=== PATIENT | female | born 1990 | race African-American/Black ===

== ENCOUNTER → 2017-05-26 | Outpatient (CLI) | payer OTHER ==
--- NOTE | 2017-06-15 00:27 | ECWPNPC ---
PATIENT NAME: JULIANA SLADE : 1990 GENDER: FEMALE VISIT DATE: 05/26/2017 DISCHARGE DATE: 05/26/17 1146 VISIT LOCKED DATE TIME: PHYSICIAN: SELENE GALINDO RESOURCE: SELENE GALINDO REASON FOR APPOINTMENT 1. LOW BACK PAIN HISTORY OF PRESENT ILLNESS FALL RISK SCREENING: SCREENING :NO FALLS IN THE PAST YEAR 27 YEAR OLD FEMALE PATIENT WITH HISTORY OF CHRONIC LOW BACK PAIN. PATIENT DESCRIBES THE PAIN SHARP AND IT COMES AND GOES WITH A PAIN SCORE OF 4/10. PATIENT STATES THAT SHE FELL 3 YEARS AGO WHEN SHE FELL WHILE CLEANING A CEILING FAN. PATIENT IS CURRENTLY USING PERCOCET TO AID IN PAIN RELIEF. PATIENT REPORTS ICE, HEAT, AND PHYSICAL THERAPY DIDN'T HELP WITH PAIN RELIEF. PATIENT REPORTS HAVING LUMBAR EPIDURAL'S IN [facility] AND STATES THAT SHE HAS NO RELIEF FROM THE INJECTIONS. PATIENT DENIES UNEXPLAINABLE WEIGHT LOSS, FEVER, CHILLS, NEW CHANGES ON HER URINARY OR BOWEL CONTROL. PAIN SCREENING: PATIENT HAS A COMPLAINT OF ACUTE OR CHRONIC PAIN :YES CURRENT MEDICATIONS TAKING LEVORA 0.15/30 (28) 0.15-30 MG-MCG TABLET ORALLY TAKING VALIUM 5 MG TABLET 1 TABLET NEEDED ORALLY TWICE A DAY TAKING PERCOCET 10-325 MG TABLET 1 TABLET NEEDED ORALLY EVERY 6 HRS TAKING ONE DAILY FOR WOMEN - TABLET 1 TAB ORALLY DAILY MEDICATION LIST REVIEWED AND RECONCILED WITH THE PATIENT PAST MEDICAL HISTORY LOW BACK PAIN ENDOMETRIOSIS PANCREATITIS ALLERGIES CHOCOLATE: ITCHING: ALLERGY SURGICAL HISTORY DENIES PAST SURGICAL HISTORY FAMILY HISTORY FATHER: 57 YRS, DIAGNOSED WITH CANCER MOTHER: 53 YRS, DIAGNOSED WITH DIABETES, CANCER DAD--LUNG CAMOM--PANCREATIC CA. SOCIAL HISTORY GENERAL: TOBACCO USE ARE YOU A:CURRENT SMOKER HOW MANY CIGARETTES A DAY DO YOU SMOKE?5 OR LESS HOW SOON AFTER YOU WAKE UP DO YOU SMOKE YOUR FIRST CIGARETTE?31-60 MIN HOW OFTEN DO YOU SMOKE CIGARETTES?EVERY DAY PATIENT COUNSELED ON THE DANGERS OF TOBACCO USE AND URGED TO QUIT:05/26/2017 ARE YOU INTERESTED IN QUITTING?NOT READY TO QUIT COUNSELED THE PATIENT ON SMOKING EFFECTS, EDUCATION [id number]/09/2017 ALCOHOL SCREENING POINTS0 INTERPRETATIONNEGATIVE RECREATIONAL DRUG USE DRUG USE?NO CAFFEINE CAFFEINE USE?YES HOW OFTEN AND HOW MUCH? 2-4 CUPS COFFEE/DAY OCCUPATION: UNEMPLOYED. DIET: REGULAR. EXERCISE: WALKS 2 MILES/DAY. MARITAL STATUS: . OTHERS AT HOME: SPOUSE. [employer] [id number] RELIGIOUS LANGUAGE LANGUAGES SPOKEN:FAROESE EDUCATION LEVEL OF EDUCATION:HIGH SCHOOL LEARNING BARRIERS / SPECIAL NEEDS BARRIERS TO LEARNING?NO HEARING IMPAIRED?NO VISION IMPAIRED?NO COGNITIVELY IMPAIRED?NO READINESS TO LEARN?YES LEARNING PREFERENCES?NO LEARNING CAPABILITIES PRESENT?YES EMOTIONAL BARRIERS?NO SPECIAL DEVICES?NO MEDICAL FIELD REPRESENTATIVE NEEDED?NO PAIN CLINIC PFS, CLERGY, PUBLIC HEALTH REFERRALS PFS REFERRAL NEEDED?NO CLERGY REFERRAL NEEDED?NO PUBLIC HEALTH REFERRAL NEEDED?NO HAS THE PATIENT BEEN EDUCATED REGARDING HIS/HER PLAN OF CARE?YES PLEASE DOCUMENT ANY ADDTIONAL DETAILS. PLAN OF CARE FOR THE PAIN CENTER REVIEWED WITH PATIENT AND SHE VERBALIZED UNDERSTANDING. HAS THE PATIENT BEEN EDUCATED REGARDING PAIN, THE RISK FOR PAIN, THE IMPORTANCE OF EFFECTIVE PAIN MANAGEMENT, AND THE PAIN ASSESSMENT PROCESS?YES ADVANCE DIRECTIVES HEALTH CARE PROXY?NO WOULD YOU LIKE MORE INFORMATION?NO DO YOU HAVE A DNR?NO WOULD YOU LIKE MORE INFORMATION?NO LIVING WILL?NO WOULD YOU LIKE MORE INFORMATION?NO POWER OF EXTENSION EDUCATOR?YES NAME OF POA? -MALIKE PHONE # OF POA? [phone] DO YOU HAVE A COPY WITH YOU?NO DOMESTIC VIOLENCE DO YOU FEEL SAFE IN YOUR ENVIRONMENT?YES HOSPITALIZATION/MAJOR DIAGNOSTIC PROCEDURE PANCREATITIS 2014 REVIEW OF SYSTEMS REVIEWED BY: PROVIDER: SELENE GALINDO MD . CONSTITUTIONAL: ANY CHANGE IN YOUR MEDICAL CONDITION? NO . CHILLS NO . FEVER NO . INFECTION: DO YOU HAVE NEW INFECTIONS? NO . DO YOU HAVE HISTORY OF MRSA? NO . MUSCULOSKELETAL: ANY NEW PATTERNS OF PAIN OR NUMBNESS? NO . SYTEMIC LUPUS NO . GASTROENTEROLOGY: ANY NEW CHANGE IN BOWEL CONTROL? NO . BARRETTS ESOPHAGUS NO . CIRRHOSIS NO . HEPATITIS NO . LIVER FAILURE NO . ACID REFLUX NO . UNEXPLAINED WEIGHT LOSS NO . GENITOURINARY: ANY NEW CHANGE IN BLADDER CONTROL? NO . IS THERE A CHANCE YOU COULD BE ? NO . HEMATOLOGY/LYMPH: DO YOU TAKE ANY BLOOD THINNERS? (FOR EXAMPLE- COUMADIN, PLAVIX, AGGRENOX, PLATEL, PRADAXA, OR XARELTO) NO . WHEN WAS YOUR LAST DOSE? DATE: TIME: . LOW PLATELET COUNT NO . SICKLE CELL DISEASE NO . VON WILLIEBRANDS NO . FACTOR V LEIDEN NO . THALLASEMIA NO . ANEMIA NO . EASY BRUISING NO . NEUROLOGY: HAVE YOU FALLEN IN THE PAST 6 MONTHS? YES, FELL IN THE SHOWER LAST WEEK AND THEN AGAIN GETTING OUT OF THE SHOWER. NO INJURY . ANY NEW EXTREMITY NUMBNESS OR WEAKNESS? NO . HEAD INJURY NO . DEMENTIA NO . CEREBRAL PALSY NO . MULTIPLE SCLEROSIS NO . DIZZINESS NO . HEADACHE NO . STROKES NO . VERTIGO NO . CARDIOLOGY: DO YOU HAVE A PACEMAKER OR DEFIBRILLATOR? NO . ANGINA NO . HEART ATTACK NO . HEART SURGERY NO . CONGESTIVE HEART FAILURE/FLUID OVERLOAD NO . CHEST PAIN NO . HIGH BLOOD PRESSURE NO . IRREGULAR HEART BEAT WHEN SHE WAS A TEENAGER WAS TOLD SHE HAD IRREGULAR HEART BEAT BUT NOTHING SINCE THEN . RESPIRATORY: HAVE YOU BEEN SICK IN THE PAST WEEK? NO . FEVER NO . FLU LIKE SYMPTOMS? NO . CPAP NO . BYPAP NO . ASTHMA NO . EMPHYSEMA NO . CHRONIC LUNG DISEASES NO . SHORTNESS OF BREATH ON EXERTION NO . COUGH NO . SNORING NO . INTEGUMENTARY: DO YOU HAVE ANY RASHES OR OPEN SORES? NO . ALLERGIC/IMMUNO: ARE YOU ALLERGIC TO SHELLFISH OR IV DYE? NO . ANY NEW ALLERGIES? NO . PSYCHIATRIC: DO YOU HAVE THOUGHTS OF HURTING YOURSELF OR SOMEONE ELSE? NO . ARE YOU ABUSED, NEGLECTED, OR IN AN UNSAFE ENVIRONMENT? NO . ENDOCRINOLOGY: ARE YOU DIABETIC? NO . THYROID DISORDER NO . OTHER: DO YOU NEED ANY PRESCRIPTIONS? NO . IF YES, PLEASE LIST: ____ . ANY NEW PROBLEMS WITH YOUR MEDICATIONS? NO . WHEN DID YOU LAST EAT? ____ . WHEN DID YOU LAST DRINK? ____ . WHAT DID YOU LAST DRINK? ____ . NAME OF PERSON DRIVING YOU HOME? ____ . DO YOU HAVE ANY OTHER QUESTIONS OR CONCERNS WOULD LIKE SOMETHING FOR THE PAIN . VITAL SIGNS WT 136 LBS, HT 55 IN, BMI 31.61 INDEX, BP 127/85 MM HG, HR 73 /MIN, RR 18 /MIN, TEMP 98.5 F, OXYGEN SAT % 93%, NA INITIALS AW 1016, REVIEWED BY: MICHAEL, LMP: 05/23/17. EXAMINATION : PATIENT IS ALERT O X 3 AND COOPERATIVE. TENDERNESS IN THE LOWER BACK AND PARASPINAL MUSCLE GROUP. MRI DONE OF 07/18/15 OF THE LUMBAR SPINE SHOWS MULTIPLE DISC BULGES AND SPINAL STENOSIS. ASSESSMENTS MYALGIA - M79.1 (PRIMARY) SPONDYLOSIS WITHOUT MYELOPATHY OR RADICULOPATHY, LUMBAR REGION - M47.816 SPONDYLOSIS WITHOUT MYELOPATHY OR RADICULOPATHY, LUMBOSACRAL REGION - M47.817 TREATMENT MYALGIA NOTES: WE DISCUSSED SEVERAL ISSUES WITH MRS. SLADE'S PAIN MANAGEMENT CASE. AT THIS TIME I WOULD LIKE THE PATIENT TO USE CYMBALTA FOR THE NEUROPATHIC PAIN. WE DISCUSSED SEVERAL INTERVENTIONS THAT MAY AID THE PATIENT IN PAIN RELIEF. WE DISCUSSED MOVING FORWARD WITH TRIGGER POINTS INJECTIONS DUE TO THE SPASTICITY OR A THERAPEUTIC FACET BLOCK. AT THIS TIME THE PATIENT WOULD LIKE TO PROCEED WITH MEDICATION MANAGEMENT FIRST. PATIENT WILL FOLLOWUP IN ONE MONTH TO DISCUSS HOW THE MEDICATION IS WORKING. INSTRUCTIONS WERE GIVEN, QUESTIONS WERE ANSWERED, PATIENT REPORTS UNDERSTANDING AND AGREES WITH THE PLAN. I, PEACE CLEMENT, DOCUMENTED THE ABOVE INFORMATION ACTING A SCRIBE FOR DR. GALINDO. I HAVE REVIEWED THE ABOVE DOCUMENT, WRITTEN BY PEACE CALLOWAY AND I VERIFY THAT IT IS ACCURATE. [facility] :THANK YOU FOR YOUR KIND REFERRAL OF MRS. SLADE. YOU WANT TO DISCUSS HER CASE WITH ME PLEASE CALL ME AT THE PAIN CENTER AT [phone]. SINCERELY,SELENE GALINDO, [facility]. OTHERS START CYMBALTA CAPSULE DELAYED RELEASE PARTICLES, 30 MG, 1 CAPSULE, ORALLY WITH FOOD, TWICE A DAY, 30 DAY(S), 60, REFILLS 1 PROCEDURE CODES FA211 ESTABILISHED PATIENT [facility] FACILITY CHARGE G8427 DOC MEDS VERIFIED W/PT OR RE G1647 PAIN ASSESS POS TOOL F/U PLAN DOC DISPOSITION & COMMUNICATION FOLLOW UP 4 WEEKS ELECTRONICALLY SIGNED BY SELENE GALINDO MD ON 06/14/2017 AT 11:46 AM EDT DISCLAIMER : THIS IS A VISIT SUMMARY EXTRACTED FROM THE [employer] CHART. IT IS NOT A COPY OF THE [employer] PROGRESS NOTE. MTDD
== END ==
LOC: M PAIN 10:20
PROVIDERS: ATTEND Anesthesiology
DX: M79.1 Myalgia (principal); M47.816 Spondylosis without myelopathy or radiculopathy, lumbar region; M47.817 Spondylosis without myelopathy or radiculopathy, lumbosacral region; G89.29 Other chronic pain; M54.5 Low back pain; F17.210 Nicotine dependence, cigarettes, uncomplicated; Z91.018 Allergy to other foods

== ENCOUNTER → 2017-06-10 | Outpatient (CLI) | payer OTHER ==
--- NOTE | 2017-06-20 23:24 | ECWPNPC ---
PATIENT NAME: JULIANA SLADE : 1990 GENDER: FEMALE VISIT DATE: 06/10/2017 DISCHARGE DATE: 06/10/17 1053 VISIT LOCKED DATE TIME: PHYSICIAN: KANDICE BOLES RESOURCE: KANDICE BOLES REASON FOR APPOINTMENT 1. MEDS HISTORY OF PRESENT ILLNESS HISTORY OF PRESENT ILLNESS: PAIN THE PATIENT DESCRIBES THE PAIN... FALL RISK SCREENING: SCREENING :NO FALLS IN THE PAST YEAR TODAY'S VISIT: NOTES: STARTED WITH CYMBALTA ONCE A DAY AND DEVELOPED CRAMPING WITH NO NAUSEA WHICH LASTED SEVERAL HOURS. CALLED AND WAS TOLD TO STOP MED AND FOLLOWUP WAS GIVEN. BACK PAIN HAS GOTTEN WORSE OVER TIME. IS SEEING A DRIER TENDER TOMORROW FOR ENDOMETRIOSIS. REPORTS N/T IN RIGHT LEG FROM HIP TO FOOT. OCCURS ABOUT 2 X PER WEEK FOR ABOUT 10 MIN. NO B/B ISSUES. CURRENT MEDICATIONS TAKING LEVORA 0.15/30 (28) 0.15-30 MG-MCG TABLET ORALLY TAKING ONE DAILY FOR WOMEN - TABLET 1 TAB ORALLY DAILY NOT-TAKING VALIUM 5 MG TABLET 1 TABLET NEEDED ORALLY TWICE A DAY NOT-TAKING PERCOCET 10-325 MG TABLET 1 TABLET NEEDED ORALLY EVERY 6 HRS NOT-TAKING CYMBALTA 30 MG CAPSULE DELAYED RELEASE PARTICLES 1 CAPSULE ORALLY WITH FOOD TWICE A DAY MEDICATION LIST REVIEWED AND RECONCILED WITH THE PATIENT PAST MEDICAL HISTORY LOW BACK PAIN ENDOMETRIOSIS PANCREATITIS ALLERGIES CHOCOLATE: ITCHING: ALLERGY SURGICAL HISTORY DENIES PAST SURGICAL HISTORY HOSPITALIZATION/MAJOR DIAGNOSTIC PROCEDURE PANCREATITIS 2014 REVIEW OF SYSTEMS REVIEWED BY: PROVIDER: KANDICE BOLES DIGITAL MEASUREMENT ADVISOR . CONSTITUTIONAL: ANY CHANGE IN YOUR MEDICAL CONDITION? YES, PT STATES SHE WAS STARTED ON CYMBALTA FOR PAIN AND TO TAKE RX WITH FOOD. PT DID INSTRUCTED, BUT STILL HAS STOMACH PAINS WITH MED. PT WAS INSTRUCTED TO STOP RX. . CHILLS NO . FEVER NO . INFECTION: DO YOU HAVE NEW INFECTIONS? NO . DO YOU HAVE HISTORY OF MRSA? NO . MUSCULOSKELETAL: ANY NEW PATTERNS OF PAIN OR NUMBNESS? NO . GASTROENTEROLOGY: ANY NEW CHANGE IN BOWEL CONTROL? NO . GENITOURINARY: ANY NEW CHANGE IN BLADDER CONTROL? NO . IS THERE A CHANCE YOU COULD BE ? NO . HEMATOLOGY/LYMPH: DO YOU TAKE ANY BLOOD THINNERS? (FOR EXAMPLE- COUMADIN, PLAVIX, AGGRENOX, PLATEL, PRADAXA, OR XARELTO) NO . WHEN WAS YOUR LAST DOSE? DATE: TIME: . NEUROLOGY: HAVE YOU FALLEN IN THE PAST 6 MONTHS? YES, PT STATES SHE SLIPPED IN SHOWER X 2, PT REPORTS MINOR INJURIES NOT REQUIRING MEDICAL ATTENTION . ANY NEW EXTREMITY NUMBNESS OR WEAKNESS? NO . CARDIOLOGY: DO YOU HAVE A PACEMAKER OR DEFIBRILLATOR? NO . RESPIRATORY: HAVE YOU BEEN SICK IN THE PAST WEEK? NO . FEVER NO . FLU LIKE SYMPTOMS? NO . COUGH NO . INTEGUMENTARY: DO YOU HAVE ANY RASHES OR OPEN SORES? NO . ALLERGIC/IMMUNO: ARE YOU ALLERGIC TO SHELLFISH OR IV DYE? NO . ANY NEW ALLERGIES? NO . PSYCHIATRIC: DO YOU HAVE THOUGHTS OF HURTING YOURSELF OR SOMEONE ELSE? NO . ARE YOU ABUSED, NEGLECTED, OR IN AN UNSAFE ENVIRONMENT? NO . ENDOCRINOLOGY: ARE YOU DIABETIC? NO . OTHER: DO YOU NEED ANY PRESCRIPTIONS? YES, PT TO DISCUSS REPLACING CYMBALTA. PT STATES SHE USED TO TAKE PERCOSET AND VALIUM . IF YES, PLEASE LIST: ____ . ANY NEW PROBLEMS WITH YOUR MEDICATIONS? NO . WHEN DID YOU LAST EAT? ____ . WHEN DID YOU LAST DRINK? ____ . WHAT DID YOU LAST DRINK? ____ . NAME OF PERSON DRIVING YOU HOME? ____ . DO YOU HAVE ANY OTHER QUESTIONS OR CONCERNS NO . VITAL SIGNS WT 136 LBS, HT 55 IN, BMI 31.61 INDEX, BP 122/67 MM HG, HR 85 /MIN, RR 16 /MIN, TEMP 97.9 F, OXYGEN SAT % 100%, NA INITIALS CM 1006, REVIEWED BY: EM. EXAMINATION GENERAL EXAMINATION: PSYCHALERT , ORIENTED X 3 , APPROPRIATE MOOD AND AFFECT . LUNGS:CLEAR TO AUSCULTATION BILATERALLY. HEART:HEART RATE REGULAR. MUSCULOSKELETAL:MUSCLE STRENGTH TESTING 5/5 BILATERAL UPPER AND LOWER EXTREMITIES. RISES EASILY TO STANDING POSITION. OSTURE STOOPED. TENDER WITH PALPATION OVER LUMBER FACETS AND ACROSS THE LUMBOSACRAL AXIS. . 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 WE WILL BE GLAD TO WORK WTH OTHER MEDS AND INTERVENTIONS. CLINICAL NOTES: ISTOP REGISTRY REVIEWED. OTHERS START CYCLOBENZAPRINE HCL TABLET, 10 MG, 1 TABLET NEEDED, ORALLY, THREE TIMES A DAY, 30 DAY(S), 90 TABLET, REFILLS 0 START TRAMADOL HCL TABLET, 50 MG, 1 TABLET NEEDED, ORALLY, EVERY 8 HRS PRN PAIN MDD=3, 30 DAY(S), 80, REFILLS 0 INJECTION FACET JOINT/NERVE MIKE/SACRALKANDICE BOLES 06/10/2017 10:41:23 AM > BILATERAL THERAPEUTIC NOTES: FACET JOINT INJECTION MATERIAL WAS PRINTED, REVIEWED AND GIVEN TO PT. PROCEDURE CODES FA211 ESTABILISHED PATIENT [facility] FACILITY CHARGE DISPOSITION & COMMUNICATION FOLLOW UP KEEP FOLLOW UP APPT SCHED (REASON: CHECK AUTH FOR BILATERAL THERAPEUTIC LUMBAR FACET BLOCK L4-5, L5-S1) ELECTRONICALLY SIGNED BY MAGGIE NG ON 06/20/2017 AT 04:15 PM EDT DISCLAIMER : THIS IS A VISIT SUMMARY EXTRACTED FROM THE [employer] CHART. IT IS NOT A COPY OF THE [employer] PROGRESS NOTE. MTDD
== END ==
LOC: M PAIN 11:30
PROVIDERS: ATTEND Nurse Practitioner Family
DX: M79.1 Myalgia (principal); M47.816 Spondylosis without myelopathy or radiculopathy, lumbar region; M47.817 Spondylosis without myelopathy or radiculopathy, lumbosacral region; M54.5 Low back pain; Z79.3 Long term (current) use of hormonal contraceptives; Z91.018 Allergy to other foods

== ENCOUNTER → 2017-07-27 | Outpatient (CLI) | payer OTHER ==
[~2017-07-27] MED LIST: BUPIVACAINE HCL 0.25% 30 ML VIAL As Ordered ONE; ISOVUE-M 300 61% 15ML VIAL (Q9967) As Ordered ONE; LIDOCAINE 1% SDV INJ 30 ML VIAL As Ordered ONE; MIDAZOLAM INJ 2 MG/2 ML VIAL (J2250) As Ordered ONE; TRIAMCINOLONE ACETONIDE SUSP 40 MG/ML VIAL (J3301) As Ordered ONE; diazePAM 5 MG TAB As Ordered ONE; diphenhydrAMINE 25 MG CAP As Ordered ONE; diphenhydrAMINE INJ 50MG/ML VIAL (J1200) As Ordered ONE; fentaNYL 100 MCG/2 ML INJECTION (J3010) As Ordered ONE; oxyCODONE 5MG TAB As Ordered ONE
--- NOTE | 2017-07-28 09:15 | REP ---
Partial lumbar spine series: Two views . History: Injection procedure for pain. 29 seconds of fluoroscopy time is reported. Findings: A sequence of two fluoroscopically obtained last image hold procedural spot radiographs of the lumbar spine document needle position and contrast injection associated with injection procedure. Signed by Mayo Valladares MD 07/27/2017 12:14 P
--- NOTE | 2017-07-28 23:58 | ECWPNPC ---
PATIENT NAME: JULIANA SLADE : 1990 GENDER: FEMALE VISIT DATE: 07/27/2017 DISCHARGE DATE: 07/27/17 1311 VISIT LOCKED DATE TIME: PHYSICIAN: SELENE GALINDO RESOURCE: SELENE GALINDO REASON FOR APPOINTMENT 1. BILATERAL THERAPEUTIC LUMBAR HISTORY OF PRESENT ILLNESS HISTORY OF PRESENT ILLNESS: PAIN THE PATIENT DESCRIBES THE PAIN... FALL RISK SCREENING: SCREENING :NO FALLS IN THE PAST YEAR CURRENT MEDICATIONS TAKING LEVORA 0.15/30 (28) 0.15-30 MG-MCG TABLET ORALLY , NOTES: 07/26 840 TAKING ONE DAILY FOR WOMEN - TABLET 1 TAB ORALLY DAILY, NOTES: 07/26 840 NOT-TAKING CYCLOBENZAPRINE HCL 10 MG TABLET 1 TABLET NEEDED ORALLY THREE TIMES A DAY, NOTES: NOT EFFECTIVE NOT-TAKING TRAMADOL HCL 50 MG TABLET 1 TABLET NEEDED ORALLY EVERY 8 HRS PRN PAIN MDD=3, NOTES: NOT EFFECTIVE DISCONTINUED VALIUM 5 MG TABLET 1 TABLET NEEDED ORALLY TWICE A DAY DISCONTINUED PERCOCET 10-325 MG TABLET 1 TABLET NEEDED ORALLY EVERY 6 HRS DISCONTINUED CYMBALTA 30 MG CAPSULE DELAYED RELEASE PARTICLES 1 CAPSULE ORALLY WITH FOOD TWICE A DAY MEDICATION LIST REVIEWED AND RECONCILED WITH THE PATIENT PAST MEDICAL HISTORY LOW BACK PAIN ENDOMETRIOSIS PANCREATITIS ALLERGIES CHOCOLATE: ITCHING: ALLERGY SOCIAL HISTORY GENERAL: TOBACCO USE ARE YOU A:CURRENT SMOKER ARE YOU INTERESTED IN QUITTING?NOT READY TO QUIT FEELS LIKE SHE HAS CUT DOWN ON #/DAY COUNSELED THE PATIENT ON SMOKING EFFECTS, EDUCATION [id number]/10/2017 HOW MANY CIGARETTES A DAY DO YOU SMOKE?5 OR LESS HOW SOON AFTER YOU WAKE UP DO YOU SMOKE YOUR FIRST CIGARETTE?31-60 MIN HOW OFTEN DO YOU SMOKE CIGARETTES?EVERY DAY PATIENT COUNSELED ON THE DANGERS OF TOBACCO USE AND URGED TO QUIT:07/27/2017 ALCOHOL SCREENING DID YOU HAVE A DRINK CONTAINING ALCOHOL IN THE PAST YEAR?NO POINTS0 INTERPRETATIONNEGATIVE RECREATIONAL DRUG USE DRUG USE?NO CAFFEINE CAFFEINE USE?YES HOW OFTEN AND HOW MUCH? 2-4 CUPS COFFEE/DAY OCCUPATION: UNEMPLOYED. DIET: REGULAR. EXERCISE: WALKS 2 MILES/DAY. MARITAL STATUS: . OTHERS AT HOME: SPOUSE. BUDDHIST [id number] BAPTISM LANGUAGE LANGUAGES SPOKEN:DIVEHI EDUCATION LEVEL OF EDUCATION:HIGH SCHOOL LEARNING BARRIERS / SPECIAL NEEDS BARRIERS TO LEARNING?NO HEARING IMPAIRED?NO VISION IMPAIRED?NO COGNITIVELY IMPAIRED?NO READINESS TO LEARN?YES LEARNING PREFERENCES?NO LEARNING CAPABILITIES PRESENT?YES EMOTIONAL BARRIERS?NO SPECIAL DEVICES?NO VENTILATOR SPECIALIST NEEDED?NO PAIN CLINIC PFS, CLERGY, PUBLIC HEALTH REFERRALS PFS REFERRAL NEEDED?NO CLERGY REFERRAL NEEDED?NO PUBLIC HEALTH REFERRAL NEEDED?NO HAS THE PATIENT BEEN EDUCATED REGARDING HIS/HER PLAN OF CARE?YES PLEASE DOCUMENT ANY ADDTIONAL DETAILS. PLAN OF CARE FOR THE PAIN CENTER REVIEWED WITH PATIENT AND SHE VERBALIZED UNDERSTANDING. HAS THE PATIENT BEEN EDUCATED REGARDING PAIN, THE RISK FOR PAIN, THE IMPORTANCE OF EFFECTIVE PAIN MANAGEMENT, AND THE PAIN ASSESSMENT PROCESS?YES ADVANCE DIRECTIVES HEALTH CARE PROXY?NO WOULD YOU LIKE MORE INFORMATION?NO DO YOU HAVE A DNR?NO WOULD YOU LIKE MORE INFORMATION?NO LIVING WILL?NO WOULD YOU LIKE MORE INFORMATION?NO POWER OF ASSISTANT PRODUCER?YES NAME OF POA? -MALIKE PHONE # OF POA? [phone] DO YOU HAVE A COPY WITH YOU?NO DOMESTIC VIOLENCE DO YOU FEEL SAFE IN YOUR ENVIRONMENT?YES 07/27/17 2808 REVIEWED WITH PAT. RODRIGUEZ. REVIEW OF SYSTEMS REVIEWED BY: PROVIDER: . CONSTITUTIONAL: ANY CHANGE IN YOUR MEDICAL CONDITION? NO . CHILLS NO . FEVER NO . INFECTION: DO YOU HAVE NEW INFECTIONS? NO . DO YOU HAVE HISTORY OF MRSA? NO . MUSCULOSKELETAL: ANY NEW PATTERNS OF PAIN OR NUMBNESS? NO . GASTROENTEROLOGY: ANY NEW CHANGE IN BOWEL CONTROL? NO . GENITOURINARY: ANY NEW CHANGE IN BLADDER CONTROL? NO . IS THERE A CHANCE YOU COULD BE ? NO . HEMATOLOGY/LYMPH: DO YOU TAKE ANY BLOOD THINNERS? (FOR EXAMPLE- COUMADIN, PLAVIX, AGGRENOX, PLATEL, PRADAXA, OR XARELTO) NO . WHEN WAS YOUR LAST DOSE? DATE: TIME: . NEUROLOGY: HAVE YOU FALLEN IN THE PAST 6 MONTHS? YES, 3 MONTHS AGO FELL WHILE IN THE SHOWER AND THEN AFTER GETTING OUT OF THE SHOWER. NO INJURY . ANY NEW EXTREMITY NUMBNESS OR WEAKNESS? NO . CARDIOLOGY: DO YOU HAVE A PACEMAKER OR DEFIBRILLATOR? NO . RESPIRATORY: HAVE YOU BEEN SICK IN THE PAST WEEK? NO . FEVER NO . FLU LIKE SYMPTOMS? NO . COUGH NO . INTEGUMENTARY: DO YOU HAVE ANY RASHES OR OPEN SORES? NO . ALLERGIC/IMMUNO: ARE YOU ALLERGIC TO SHELLFISH OR IV DYE? NO . ANY NEW ALLERGIES? NO . PSYCHIATRIC: DO YOU HAVE THOUGHTS OF HURTING YOURSELF OR SOMEONE ELSE? NO . ARE YOU ABUSED, NEGLECTED, OR IN AN UNSAFE ENVIRONMENT? NO . ENDOCRINOLOGY: ARE YOU DIABETIC? NO . OTHER: DO YOU NEED ANY PRESCRIPTIONS? NO . ANY NEW PROBLEMS WITH YOUR MEDICATIONS? NO . WHEN DID YOU LAST EAT? 07/26 2230 . WHEN DID YOU LAST DRINK? 07/26 2300 . WHAT DID YOU LAST DRINK? HOT TEA . NAME OF PERSON DRIVING YOU HOME? MALIKE . DO YOU HAVE ANY OTHER QUESTIONS OR CONCERNS NO . VITAL SIGNS WT 137 LBS, HT 55 IN, BMI 31.84 INDEX, BP 138/89 MM HG, HR 74 /MIN, RR 16 /MIN, TEMP 98.1 F, OXYGEN SAT % 100%, NA INITIALS SC 10:29, REVIEWED BY: MICHAEL, LMP: 07/22/17. ASSESSMENTS SPONDYLOSIS OF LUMBAR REGION WITHOUT MYELOPATHY OR RADICULOPATHY - M47.816 (PRIMARY) PROCEDURES PN LUMBAR FACET BLOCK THERAPEUTIC PRE PROCEDURE DIAGNOSIS LUMBAR SPONDYLOSIS POST PROCEDURE DIAGNOSIS LUMBAR SPONDYLOSIS PROCEDURE BILATERAL L3-L4 AND BILATERAL L4-L5 LUMBAR FACET THERAPEUTIC BLOCK SURGEON DR. SELENE GALINDO MIXING PICKER TENDER NONE ANESTHESIA LOCAL WITH IV SEDATION PRE PROCEDURE NOTE THE PATIENT HAS A HISTORY OF CHRONIC LOW BACK PAIN. I EVALUATE THE PATIENT AND REVIEWED THE CHART. I WENT OVER THE RISKS, ALTERNATIVES, AND BENEFITS ASSOCIATED WITH THIS PROCEDURE. PATIENT WOULD LIKE TO MOVE FORWARD WITH IV SEDATION DUE TO DISCOMFORT, PAIN AND ANXIETY ASSOCIATED WITH THE PROCEDURE. THE PATIENT WOULD LIKE TO PROCEED AND GIVE CONSENT TO PERFORMED THE PROCEDURE. THE PATIENT DENIES UNEXPLAINABLE WEIGHT LOSS, FEVER, CHILLS, OR NEW CHANGES IN URINARY OR BOWEL CONTROL DESCRIPTION OF PROCEDURE THE PATIENT WAS BROUGHT TO THE PROCEDURE ROOM AND PLACED IN THE PRONE POSITION. THE LUMBOSACRAL AREA WAS CLEANED WITH CHLORAPREP SOLUTION AND DRAPED ASEPTICALLY. THE PROCEDURE WAS DONE UNDER STERILE CONDITIONS. I CHECKED LATERALITY AND THE LEVEL WHERE THE PROCEDURE WAS GOING TO BE PERFORMED WITH THE PATIENT AND THE SUPPORTING STAFF AT THE MOMENT OF THE TIME OUT IN THE PROCEDURE ROOM. UNDER FLUOROSCOPIC GUIDANCE, THE TARGET POINT WAS SELECTED AT THE RIGHT AND LEFT L3-L4 AND RIGHT AND LEFT L4-L5 FACET JOINT. TARGET POINT WAS SELECTED AFTER LATERAL ROTATION AND TILT OF THE MAGNIFIER OF THE C-ARM. LIDOCAINE 0.5% WAS USED TO NUMB THE SKIN AND THE SUBCUTANEOUS TISSUE BELOW IT. SPINAL NEEDLES, 22-GAUGE, WERE ADVANCED UNDER FLUOROSCOPIC GUIDANCE AND FOLLOWING PATIENT FEEDBACK UNTIL THE TARGETS WERE TOUCHED. THE POSITION OF THE NEEDLES WAS VERIFIED WITH AP AND LATERAL VIEWS. AFTER PROPER POSITION OF THE NEEDLES WAS ACHIEVED, ISOVUE-M DYE 30% 0.1 ML WAS INJECTED SHOWING ADEQUATE SPREAD OF THE DYE. THEN A SOLUTION OF 1.9 ML OF BUPIVACAINE 0.125% OF KENALOG 10 MG WAS INJECTED AT EACH SITE. PATIENT RECEIVED VERSED 2 MG AND FENTANYL 200 MCG IV DIVIDED DOSES THERE WAS NO EVIDENCE OF BLOOD, PARESTHESIA OR CEREBROSPINAL FLUID DURING THE PROCEDURE. THE PATIENT WAS SENT TO THE RECOVERY ROOM. THE PATIENT WAS MOVING THE EXTREMITIES AND DOING WELL. THERE WAS NO COMPLICATION DURING THE PROCEDURE. FLUOROSCOPY TIME WAS 29 SECONDS. FACE TO FACE TIME WAS 16 MINUTES POST PROCEDURE NOTE THE PATIENT WILL BE SEEN IN A FOLLOW UP IN THE NEXT FEW WEEKS. INSTRUCTIONS WERE GIVEN, QUESTIONS WERE ANSWERED, AND THE PATIENT EXPRESSED UNDERSTANDING AND AGREES WITH THE PLAN. I, PEACE CLEMENT, DOCUMENTED THE ABOVE INFORMATION ACTING A SCRIBE FOR DR. GALINDO. I HAVE REVIEWED THE ABOVE DOCUMENT, WRITTEN BY PEACE CALLOWAY AND I VERIFY THAT IT IS [facility] (PAIN)[id number] PROCEDURE CODES 20693 INJ PARAVERT F JNT L/S 1 LEV, MODIFIERS: 50 [id number] INJ PARAVERT F JNT L/S 2 LEV, MODIFIERS: 50 [id number] RADXPS IN END [id number] PXD [id number] MOD SED SAME PHYS/QHP 5/>YRS DISPOSITION & COMMUNICATION FOLLOW UP 3 WEEKS ELECTRONICALLY SIGNED BY SELENE GALINDO MD ON 07/28/2017 AT 12:56 PM EDT DISCLAIMER : THIS IS A VISIT SUMMARY EXTRACTED FROM THE [employer] CHART. IT IS NOT A COPY OF THE [employer] PROGRESS NOTE. MTDD
== END ==
LOC: M PAIN 10:45
PROVIDERS: ATTEND Anesthesiology
DX: G89.29 Other chronic pain (principal); M47.816 Spondylosis without myelopathy or radiculopathy, lumbar region; M54.5 Low back pain; F17.210 Nicotine dependence, cigarettes, uncomplicated; Z91.018 Allergy to other foods; Z79.899 Other long term (current) drug therapy
CPT/HCPCS: 64493; 64494; 99152; J1200; J2250; J3010; J3301; Q9967

== ENCOUNTER → 2017-09-15 | Outpatient (CLI) | payer OTHER ==
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
== END ==
LOC: M PAIN 13:30
PROVIDERS: ATTEND Nurse Practitioner Family
DX: M79.1 Myalgia (principal); M47.816 Spondylosis without myelopathy or radiculopathy, lumbar region; M47.817 Spondylosis without myelopathy or radiculopathy, lumbosacral region; F17.210 Nicotine dependence, cigarettes, uncomplicated; Z79.899 Other long term (current) drug therapy; Z91.018 Allergy to other foods

== ENCOUNTER → 2017-11-11 | Outpatient (CLI) | payer OTHER | LOC: M PAIN 14:30 | DX: M79.1 Myalgia (principal); M47.816 Spondylosis without myelopathy or radiculopathy, lumbar region; M47.817 Spondylosis without myelopathy or radiculopathy, lumbosacral region; Z79.899 Other long term (current) drug therapy; Z87.891 Personal history of nicotine dependence; Z91.018 Allergy to other foods | CPT/HCPCS: G0463 ==

== ENCOUNTER → 2018-01-07 | Outpatient (CLI) | payer OTHER | LOC: M PAIN 13:45 | DX: M47.816 Spondylosis without myelopathy or radiculopathy, lumbar region (principal); M47.817 Spondylosis without myelopathy or radiculopathy, lumbosacral region; M79.7 Fibromyalgia; Z79.899 Other long term (current) drug therapy; Z88.5 Allergy status to narcotic agent; Z91.018 Allergy to other foods; Z87.891 Personal history of nicotine dependence | CPT/HCPCS: G0463 ==

== ENCOUNTER → 2018-02-17 | Outpatient (CLI) | payer OTHER | LOC: M PAIN 10:45 | DX: G89.29 Other chronic pain (principal); M79.1 Myalgia; M47.816 Spondylosis without myelopathy or radiculopathy, lumbar region; M47.817 Spondylosis without myelopathy or radiculopathy, lumbosacral region; N80.9 Endometriosis, unspecified; Z79.899 Other long term (current) drug therapy; Z87.891 Personal history of nicotine dependence; Z88.5 Allergy status to narcotic agent; Z91.018 Allergy to other foods | CPT/HCPCS: G0463 ==

== ENCOUNTER → 2018-03-21 | Outpatient (CLI) | payer OTHER | LOC: M PAIN 11:30 | DX: M79.7 Fibromyalgia (principal); M47.817 Spondylosis without myelopathy or radiculopathy, lumbosacral region; Z79.899 Other long term (current) drug therapy; Z88.5 Allergy status to narcotic agent; Z91.018 Allergy to other foods | CPT/HCPCS: G0463 ==

== ENCOUNTER → 2018-04-26 | Outpatient (CLI) | payer OTHER | LOC: M PAIN 13:00 | DX: M79.7 Fibromyalgia (principal); M47.817 Spondylosis without myelopathy or radiculopathy, lumbosacral region; Z79.899 Other long term (current) drug therapy; Z88.5 Allergy status to narcotic agent; Z91.018 Allergy to other foods; Z87.891 Personal history of nicotine dependence | CPT/HCPCS: G0463 ==

== ENCOUNTER → 2018-06-09 | Outpatient (CLI) | payer OTHER | LOC: M PAIN 13:15 | DX: M79.7 Fibromyalgia (principal); M47.817 Spondylosis without myelopathy or radiculopathy, lumbosacral region; G47.00 Insomnia, unspecified; Z79.899 Other long term (current) drug therapy; Z88.5 Allergy status to narcotic agent; Z91.018 Allergy to other foods; Z87.891 Personal history of nicotine dependence | CPT/HCPCS: G0463 ==

== ENCOUNTER 2018-07-28 00:51 | Inpatient (IN) | payer OTHER ==
[2018-07-28] MEDS: LORazepam 2 MG/ML VIAL (J2060) IM (02:06)
[2018-07-28] MEDS: diphenhydrAMINE INJ 50MG/ML VIAL (J1200) IM (02:06)
[2018-07-28] MEDS: HALOPERIDOL 5 MG/ML VIAL (J1630) IM (02:06)
[2018-07-28 03:05] LABS: AMPHETAMINES LEVEL URINE NEGATIVE (NEGATIVE); BARBITURATES URINE NEGATIVE (NEGATIVE); BENZODIAZEPINES URINE NEGATIVE (NEGATIVE); CANNABINOIDS URINE NEGATIVE (NEGATIVE); COCAINE METABOLITE URINE NEGATIVE (NEGATIVE); METHADONE URINE NEGATIVE (NEGATIVE); OPIATES URINE NEGATIVE (NEGATIVE); PHENCYCLIDINE URINE NEGATIVE (NEGATIVE)
[2018-07-28 03:25] LABS: HEMATOCRIT 28.6 % (36.0-47.0); HEMOGLOBIN 9.1 g/dl (12.0-15.5); MEAN CORPUSCULAR HEMOGLOBIN 21.1 pg (27.0-33.0); MEAN CORPUSCULAR HGB CONC 31.8 g/dl (32.0-36.5); MEAN CORPUSCULAR VOLUME 66.2 fl (80.0-96.0); PLATELET COUNT, AUTOMATED 307 10^3/uL (150-450); RED BLOOD COUNT 4.32 10^6/uL (4.00-5.40); RED CELL DISTRIBUTION WIDTH 18.2 % (11.5-14.5); WHITE BLOOD COUNT 8.1 10^3/uL (4.0-10.0)
[2018-07-28 04:17] LABS: CONTROL LINE HCG INT CTR LINE PRESENT; HCG, SERUM QUALITATIVE NEGATIVE (NEGATIVE)
[2018-07-28 04:31] LABS: ACETAMINOPHEN LEVEL < 2.0 UG/ML (10.0-30.0); ALBUMIN/GLOBULIN RATIO 1.14 (1.00-1.93); ALKALINE PHOSPHATASE 58 U/L (45-117); ALT/SGPT 13 U/L (12-78); ANION GAP 10 MEQ/L (8-16); AST/SGOT 16 U/L (7-37); BILIRUBIN,DIRECT 0.1 MG/DL (0.0-0.2); BILIRUBIN,TOTAL 0.3 MG/DL (0.2-1.0); BLOOD UREA NITROGEN 6 MG/DL (7-18); CALCIUM LEVEL 8.4 MG/DL (8.5-10.1); CARBON DIOXIDE LEVEL 23 MEQ/L (21-32); CHLORIDE LEVEL 109 MEQ/L (98-107); CREATININE FOR GFR 0.72 MG/DL (0.55-1.30); ETHYL ALCOHOL (ETHANOL) 0.193 % (0.000-0.010); GLOMERULAR FILTRATION RATE > 60.0 (>60); GLUCOSE, FASTING 85 MG/DL (70-100); POTASSIUM SERUM 3.8 MEQ/L (3.5-5.1); SALICYLATE LEVEL 2.5 MG/DL (5.0-30.0); SODIUM LEVEL 142 MEQ/L (136-145); THYROID STIMULATING HORMONE 0.989 uIU/ML (0.358-3.740); TOTAL PROTEIN 7.5 GM/DL (6.4-8.2)
[2018-07-28 04:57] LABS: FERRITIN 3 NG/ML (8-252); IRON (FE) 12 UG/DL (50-170); PERCENT SATURATION 2.5 % (13.2-45.0); TOTAL IRON BINDING CAPACITY 486 UG/DL (250-450)
[2018-07-28] MEDS ORDERED: MAALOX 30 ML SUSP *UDC PO (15:00)
[2018-07-28] MEDS ORDERED: LORazepam 2 MG TAB PO (15:00)
[2018-07-28] MEDS ORDERED: ACETAMINOPHEN TAB 650MG DOSE (2X325MG) PO (15:00)
[2018-07-28] MEDS ORDERED: MOM 30ML SUSPENSION UDC PO (15:00)
[2018-07-28] MEDS: THIAMINE 100 MG TAB PO (16:44)
[2018-07-28] MEDS: FOLIC ACID 1 MG TAB PO (18:25)
[2018-07-28] MEDS: MULTIVITAMINS/MINERALS THERAP 1 TAB PO (18:26)
[2018-07-28] MEDS: hydrOXYzine 50 MG TAB PO (19:45)
[2018-07-28] MEDS: traZODone 50 MG TAB PO (21:01)
[2018-07-28 22:45] LABS: FOLATE 3.2 NG/ML (>5.4)
[2018-07-29] MEDS: FOLIC ACID 1 MG TAB PO (08:09)
[2018-07-29] MEDS: THIAMINE 100 MG TAB PO ×2 (08:09→21:16)
[2018-07-29] MEDS: MULTIVITAMINS/MINERALS THERAP 1 TAB PO (08:09)
[2018-07-29] MEDS: hydrOXYzine 50 MG TAB PO ×3 (08:44→21:16)
[2018-07-29] MEDS: FERROUS SULFATE 325MG TAB PO ×2 (09:47→21:16)
[2018-07-29] MEDS: traZODone 50 MG TAB PO (21:16)
[2018-07-30] MEDS: hydrOXYzine 50 MG TAB PO (06:49)
[2018-07-30 07:27] LABS: HEMATOCRIT 28.1 % (36.0-47.0); HEMOGLOBIN 8.9 g/dl (12.0-15.5); MEAN CORPUSCULAR HEMOGLOBIN 21.2 pg (27.0-33.0); MEAN CORPUSCULAR HGB CONC 31.7 g/dl (32.0-36.5); MEAN CORPUSCULAR VOLUME 67.1 fl (80.0-96.0); PLATELET COUNT, AUTOMATED 281 10^3/uL (150-450); RED BLOOD COUNT 4.19 10^6/uL (4.00-5.40); RED CELL DISTRIBUTION WIDTH 18.4 % (11.5-14.5); WHITE BLOOD COUNT 5.9 10^3/uL (4.0-10.0)
[2018-07-30] MEDS: MULTIVITAMINS/MINERALS THERAP 1 TAB PO (09:23)
[2018-07-30] MEDS: THIAMINE 100 MG TAB PO ×2 (09:23→20:19)
[2018-07-30] MEDS: FOLIC ACID 1 MG TAB PO (09:23)
[2018-07-30] MEDS: FERROUS SULFATE 325MG TAB PO ×2 (09:23→20:19)
[2018-07-30] MEDS: LORazepam 0.5 MG TAB PO ×3 (12:10→20:19)
[2018-07-30] MEDS: FLUoxetine 10 MG CAP PO (12:10)
[2018-07-30] MEDS: traZODone 50 MG TAB PO (20:19)
[2018-07-31] MEDS: FERROUS SULFATE 325MG TAB PO ×2 (08:57→20:57)
[2018-07-31] MEDS: THIAMINE 100 MG TAB PO (08:57)
[2018-07-31] MEDS: LORazepam 0.5 MG TAB PO ×4 (08:57→20:57)
[2018-07-31] MEDS: FLUoxetine 10 MG CAP PO (08:57)
[2018-07-31] MEDS: MULTIVITAMINS/MINERALS THERAP 1 TAB PO (08:57)
[2018-07-31] MEDS: FOLIC ACID 1 MG TAB PO (08:57)
[2018-07-31] MEDS: traZODone 50 MG TAB PO (20:57)
[2018-08-01] MEDS: FLUoxetine 10 MG CAP PO (08:19)
[2018-08-01] MEDS: LORazepam 0.5 MG TAB PO ×4 (08:19→21:15)
[2018-08-01] MEDS: FOLIC ACID 1 MG TAB PO (08:19)
[2018-08-01] MEDS: MULTIVITAMINS/MINERALS THERAP 1 TAB PO (08:19)
[2018-08-01] MEDS: FERROUS SULFATE 325MG TAB PO ×2 (08:19→21:15)
[2018-08-01] MEDS: hydrOXYzine 50 MG TAB PO ×2 (15:31→21:15)
[2018-08-01] MEDS: traZODone 50 MG TAB PO (21:15)
[2018-08-02 07:05] LABS: HEMATOCRIT 27.2 % (36.0-47.0); HEMOGLOBIN 8.6 g/dl (12.0-15.5); MEAN CORPUSCULAR HEMOGLOBIN 21.9 pg (27.0-33.0); MEAN CORPUSCULAR HGB CONC 31.6 g/dl (32.0-36.5); MEAN CORPUSCULAR VOLUME 69.4 fl (80.0-96.0); PLATELET COUNT, AUTOMATED 279 10^3/uL (150-450); RED BLOOD COUNT 3.92 10^6/uL (4.00-5.40); RED CELL DISTRIBUTION WIDTH 19.7 % (11.5-14.5); WHITE BLOOD COUNT 6.5 10^3/uL (4.0-10.0)
[2018-08-02] MEDS: FOLIC ACID 1 MG TAB PO (08:17)
[2018-08-02] MEDS: FLUoxetine 20 MG CAP PO (08:17)
[2018-08-02] MEDS: LORazepam 0.5 MG TAB PO ×3 (08:17→20:52)
[2018-08-02] MEDS: FERROUS SULFATE 325MG TAB PO ×2 (08:17→20:52)
[2018-08-02] MEDS: MULTIVITAMINS/MINERALS THERAP 1 TAB PO (08:17)
[2018-08-02] MEDS: hydrOXYzine 50 MG TAB PO ×3 (09:49→19:07)
[2018-08-02] MEDS: traZODone 50 MG TAB PO (20:52)
[2018-08-03 06:56] LABS: HEMATOCRIT 28.5 % (36.0-47.0); HEMOGLOBIN 9.1 g/dl (12.0-15.5); MEAN CORPUSCULAR HEMOGLOBIN 22.3 pg (27.0-33.0); MEAN CORPUSCULAR HGB CONC 31.9 g/dl (32.0-36.5); MEAN CORPUSCULAR VOLUME 69.9 fl (80.0-96.0); PLATELET COUNT, AUTOMATED 308 10^3/uL (150-450); RED BLOOD COUNT 4.08 10^6/uL (4.00-5.40); RED CELL DISTRIBUTION WIDTH 20.6 % (11.5-14.5); WHITE BLOOD COUNT 7.6 10^3/uL (4.0-10.0)
[2018-08-03] MEDS: MULTIVITAMINS/MINERALS THERAP 1 TAB PO (08:07)
[2018-08-03] MEDS: FERROUS SULFATE 325MG TAB PO ×2 (08:07→21:27)
[2018-08-03] MEDS: FOLIC ACID 1 MG TAB PO (08:07)
[2018-08-03] MEDS: FLUoxetine 20 MG CAP PO (08:07)
[2018-08-03] MEDS: LORazepam 0.5 MG TAB PO (08:07)
[2018-08-03] MEDS: hydrOXYzine 50 MG TAB PO ×3 (11:03→21:28)
[2018-08-03] MEDS: traZODone 50 MG TAB PO (21:27)
[2018-08-04] MEDS: MULTIVITAMINS/MINERALS THERAP 1 TAB PO (08:17)
[2018-08-04] MEDS: FLUoxetine 20 MG CAP PO (08:17)
[2018-08-04] MEDS: FERROUS SULFATE 325MG TAB PO ×2 (08:17→18:48)
[2018-08-04] MEDS: FOLIC ACID 1 MG TAB PO (08:17)
[2018-08-04] MEDS: hydrOXYzine 50 MG TAB PO (18:48)
== END 2018-08-04 19:12 | disposition home or self-care (01) | DRG 881 ==
LOC: M ED 00:51 → M ED INP 14:55 → M PSY 15:40
DX: F32.9 Major depressive disorder, single episode, unspecified (principal); F10.10 Alcohol abuse, uncomplicated; Z91.018 Allergy to other foods; F17.210 Nicotine dependence, cigarettes, uncomplicated; D64.9 Anemia, unspecified